=== PATIENT | male | born 1985 | race Caucasian/White ===

== ENCOUNTER 2017-07-25 21:24 | Emergency (ER) | payer OTHER ==
[~2017-07-25] VITALS: Ht 175.3 cm; Wt 108.0 kg
[~2017-07-25 21:24] MED LIST: CEPH500C3 PO; Z.0.NO CURRENT MEDS
[2017-07-25 21:31] VITALS: BP 136/81; PULSE 96; RESP 15; O2SAT 96
[2017-07-25 21:38] VITALS: TEMP 98.5
[2017-07-25] MEDS ORDERED: methylPREDNISolone SOD SUCC 125 MG/2 ML VIAL IV PUSH ONE (21:45)
[2017-07-25] MEDS ORDERED: SODIUM CHLORIDE 0.9% FLUSH 10 ML FLUSH IVF PRN ×2 (21:45)
[2017-07-25] MEDS ORDERED: SODIUM CHLOR 0.9% 1000 ML INJ 1,000 ML IV ONE (21:45)
--- NOTE | 2017-07-25 21:47 | PD ---
HPI Chief Complaint: OD/ Ingestion Time Seen by Provider: 21:35 Travel History International Travel<30 days: No Contact w/Intl Traveler<30days: No Traveled to known affect area: No History of Present Illness HPI 32-year-old male presents to the ED via EMS after unintentional overdose. Patient states that he was using IV heroin tonight. He states he used "3/10 of a bag" in an effort to get high. He denies any suicidal ideation or attempt at suicide. He states that he was "trying to use it up so I can go back on Suboxone." The patient was witnessed to have a syncopal episode that lasted " 20 minutes" according to the girlfriend on scene. Per EMS report the patient roused easily to light touch. On presentation the patient is a and O 4. He endorses cough productive of green sputum 3 or 4 days. He also complains of sinus congestion and rhinorrhea. He endorses fever of 100 at home. He denies ear pain, sore throat, abdominal pain, nausea, vomiting, dysuria. No treatment attempted home. PFSH Past Medical History Diabetes: No Diminished Hearing: No Immune Disorder: No Psychiatric: Yes (IV DRUG USE) Past Surgical History Abdominal Surgery: Yes (BILAT HERNIA REPAIR AT 1 YO) Social History Alcohol Use: No Tobacco Use: No Substance Use: Yes Allergies-Medications (Allergen,Severity, Reaction): Coded Allergies: No Known Allergies (Verified Adverse Reaction, Unknown, 07/25/17) Reported Meds & Prescriptions Reported Meds & Active Scripts Active Prednisone 20 Mg Tab 20 Mg PO DAILY 5 Days Azithromycin 250 Mg Tab 250 Mg PO DIRECTED Take 2 tabs (500 mg) on day 1 then 1 tab daily x 4 days. Review of Systems Except as stated in HPI: all other systems reviewed are Neg Physical Exam Narrative GENERAL: Well-nourished, athletically built male in no acute distress. SKIN: Focused skin assessment warm/dry. HEAD: Normocephalic. EYES: No scleral icterus. No injection or drainage. NECK: Supple, trachea midline. No JVD or lymphadenopathy. CARDIOVASCULAR: Regular rate and rhythm without murmurs, gallops, or rubs. RESPIRATORY: Breath sounds equal bilaterally. End expiratory wheezing in bilateral lung morales. No accessory muscle use. GASTROINTESTINAL: Abdomen soft, non-tender, nondistended. MUSCULOSKELETAL: No cyanosis, or edema. BACK: Nontender without obvious deformity. No CVA tenderness. Data Data Last Documented VS Vital Signs Date Time Temp Pulse Resp B/P (MAP) Pulse Ox O2 Delivery O2 Flow Rate FiO2 07/25/17 23:14 97 Nasal Cannula 2.00 07/25/17 21:38 98.5 07/25/17 21:34 14 07/25/17 21:31 96 136/81 (99) Orders Orders Basic Metabolic Panel (Bmp) (07/25/17 21:40) Complete Blood Count With Diff (07/25/17 21:40) Iv Access Insert/Monitor (07/25/17 21:40) Methylprednisolone So Succ Inj (Solumedr (07/25/17 21:45) Sodium Chloride 0.9% Flush (Ns Flush) (07/25/17 21:45) Influenzae A/B Antigen (07/25/17 21:40) Electrocardiogram (07/25/17 21:40) Ecg Monitoring (07/25/17 21:40) Oximetry (07/25/17 21:40) Chest, Single Ap (07/25/17 21:40) Sodium Chloride 0.9% Flush (Ns Flush) (07/25/17 21:45) Albuterol-Ipratropium Neb (Duoneb Neb) (07/25/17 21:45) Sodium Chlor 0.9% 1000 Ml Inj (Ns 1000 M (07/25/17 21:45) Labs Laboratory Tests Test 07/25/17 21:50 White Blood Count 9.4 TH/MM3 Red Blood Count 4.65 MIL/MM3 Hemoglobin 14.3 GM/DL Hematocrit 41.4 % Mean Corpuscular Volume 89.1 FL Mean Corpuscular Hemoglobin 30.7 PG Mean Corpuscular Hemoglobin Concent 34.4 % Red Cell Distribution Width 13.7 % Platelet Count 215 TH/MM3 Mean Platelet Volume 8.9 FL Neutrophils (%) (Auto) 60.6 % Lymphocytes (%) (Auto) 32.7 % Monocytes (%) (Auto) 5.5 % Eosinophils (%) (Auto) 1.0 % Basophils (%) (Auto) 0.2 % Neutrophils # (Auto) 5.7 TH/MM3 Lymphocytes # (Auto) 3.1 TH/MM3 Monocytes # (Auto) 0.5 TH/MM3 Eosinophils # (Auto) 0.1 TH/MM3 Basophils # (Auto) 0.0 TH/MM3 CBC Comment DIFF FINAL Differential Comment Blood Urea Nitrogen 14 MG/DL Creatinine 0.99 MG/DL Random Glucose 172 MG/DL Calcium Level 8.3 MG/DL Sodium Level 137 MEQ/L Potassium Level 3.7 MEQ/L Chloride Level 101 MEQ/L Carbon Dioxide Level 28.7 MEQ/L Anion Gap 7 MEQ/L Estimat Glomerular Filtration Rate 87 ML/MIN MDM Medical Decision Making Medical Screen Exam Complete: Yes Emergency Medical Condition: Yes Differential Diagnosis Accidental overdose versus substance abuse versus URI versus pneumonia versus other Narrative Course 32-year-old male presents to the ED via EMS after unintentional overdose. Patient states that he was using IV heroin tonight. He states he used "3/10 of a bag" in an effort to get high. He denies any suicidal ideation or attempt at suicide. He states that he was "trying to use it up so I can go back on Suboxone." Per EMS report the patient roused easily to light touch. On presentation the patient is A and O 4. He endorses cough productive of green sputum 3 or 4 days. He also complains of sinus congestion and rhinorrhea. He endorses fever of 100 at home. He denies ear pain, sore throat, abdominal pain , nausea, vomiting, dysuria. Vitals reviewed. Physical exam is reassuring. No focal neuro deficits. He does have some wheezing in the bilateral lung morales. IV was established. Patient was administered IV Solu-Medrol, DuoNeb 3. Laboratory evaluation is unremarkable. Patient's girlfriend is at bedside. She states she'll be able to monitor him tonight. He is provided a Z-Darin, short course of steroids. He is instructed to seek outpatient treatment for his substance abuse. He is stable and discharged home. Diagnosis Primary Impression: Accidental overdose of heroin Qualified Codes: T40.1X1A - Poisoning by heroin, accidental (unintentional), initial encounter Additional Impression: Upper respiratory infection Qualified Codes: J06.9 - Acute upper respiratory infection, unspecified Referrals: [facility] (Out patient) Primary Care Physician Patient Instructions: General Instructions, Opioid Overdose (ED), Upper Respiratory Infection (ED) Additional Instructions: Rest, hydrate. Take all antibiotics as prescribed, even if her symptoms resolve. Take prednisone as prescribed. Follow-up with the primary care provider. Seek outpatient treatment for substance abuse issues. Return to the ED for any urgent or emergent medical condition. Med/Other Pt SpecificInfo: Prescription(s) given Scripts Prednisone (Prednisone) 20 Mg Tab 20 MG PO DAILY for 5 Days, #5 TAB 0 Refills Prov: Oswaldo Kearney MD 07/25/17 Azithromycin (Azithromycin) 250 Mg Tab 250 MG PO DIRECTED for Infection, #6 TAB 0 Refills Take 2 tabs (500 mg) on day 1 then 1 tab daily x 4 days. Prov: Oswaldo Kearney MD 07/25/17 Disposition: 01 DISCHARGE HOME Condition: Stable Jacqueline Aguiar Jul 25, 2017 21:47
[2017-07-25] MEDS: RESP: ALBUTEROL 2.5 MG/IPRATROPIUM 0.5 MG NEB (SCH) INH ×2 (21:49→21:50)
[2017-07-25 21:55] VITALS: O2SAT 99
[2017-07-25 22:26] LABS: AUTOMATED NEUTROPHIL # 5.7 TH/MM3 (1.8-7.7); BASOPHIL % 0.2 % (0.0-2.0); EOSINOPHIL # 0.1 TH/MM3 (0-0.4); HEMATOCRIT 41.4 % (39.0-51.0); HEMO FLAGS DIFF FINAL; LYMPH % 32.7 % (9.0-44.0); LYMPHOCYTE # 3.1 TH/MM3 (1.0-4.8); MEAN CELL VOLUME 89.1 FL (80.0-100.0); MEAN CORPUSCULAR HEMOGLOBIN 30.7 PG (27.0-34.0); MEAN CORPUSCULAR HGB CONC 34.4 % (32.0-36.0); MONO % 5.5 % (0.0-8.0); NEUT % 60.6 % (16.0-70.0); PLATELET COUNT 215 TH/MM3 (150-450); RED BLOOD COUNT 4.65 MIL/MM3 (4.50-5.90); RED CELL DISTRIBUTION WIDTH 13.7 % (11.6-17.2); WHITE BLOOD COUNT 9.4 TH/MM3 (4.0-11.0)
--- NOTE | 2017-07-25 22:43 | RADRPT ---
EXAM DATE/TIME: 07/25/2017 22:23 [facility] COMPARISON: No previous studies available for comparison. INDICATIONS : Short of breath. Possible overdose. MEDICAL HISTORY : None. SURGICAL HISTORY : None. ENCOUNTER: Initial ACUITY: 1 day PAIN SCORE: 0/10 LOCATION: Bilateral chest FINDINGS: A single view of the chest demonstrates the lungs to be symmetrically aerated without evidence of mas s, infiltrate or effusion. The cardiomediastinal contours are unremarkable. Osseous structures are intact. CONCLUSION: No acute cardiopulmonary process. Jerzy Bey MD on July 25, 2017 at 22:41 Board Certified Radiologist. This report was verified electronically.
[2017-07-25 22:45] LABS: BICARBONATE 28.7 MEQ/L (21.0-32.0); POTASSIUM 3.7 MEQ/L (3.5-5.1)
[2017-07-25] MEDS ORDERED: AZIT250T3 PO (23:02)
[2017-07-25] MEDS ORDERED: PRED20 PO ×2 (23:02→23:05)
[2017-07-25 23:14] VITALS: O2SAT 97
--- NOTE | 2017-07-26 16:04 | EKG ---
Date Performed: 07/25/2017 Time Performed: 21:33:14 PTAGE: 32 years EKG: Sinus rhythm MODERATE INTRAVENTRICULAR CONDUCTION DELAY BORDERLINE ECG Since PREVIOUS TRACING , no significant change noted PREVIOUS TRACIN07/23/2012 09.39 DOCTOR: Dariusz Cade Interpretating Date/Time 07/26/2017 16:02:44
== END 2017-07-25 23:16 | disposition home or self-care (01) ==
LOC: NEPE 21:24
DX: T40.1X1A Poisoning by heroin, accidental (unintentional), initial encounter (principal); J06.9 Acute upper respiratory infection, unspecified; Z79.899 Other long term (current) drug therapy
CPT/HCPCS: 71010; 80048; 85025; 87804; 93005; 94640; 94664; 96374; 99285; J2930; J7030